=== PATIENT | male | born 1980 | race Caucasian/White ===

== ENCOUNTER 2018-01-09 08:19 | Emergency (ER) | payer OTHER ==
[2018-01-09] MEDS ORDERED: predniSONE 20 MG TAB PO ONE (08:45)
[2018-01-09] MEDS ORDERED: ONDANSETRON 4 MG/2 ML VIAL IVP ONE (08:45)
[2018-01-09] MEDS ORDERED: methylPREDNISolone SOD SUCC 125 MG/2 ML VIAL IVP ONE (08:45)
[2018-01-09] MEDS ORDERED: NS 1,000 ML IV ONE ×2 (08:45)
--- NOTE | 2018-01-09 08:48 | EDPHY ---
H & P Time Seen by Provider: 01/09/18 08:30 HPI/ROS: CHIEF COMPLAINT: Nausea vomiting diarrhea HISTORY OF PRESENT ILLNESS: 2 older children in his family are sick, and his 1- 1/2-year-old has had diarrhea for a week. He started having diarrhea yesterday and then around midnight multiple episodes of vomiting. Last 1 at 6:00 a.m.. Associated with some abdominal cramping, no melena or hematemesis. Symptoms severe. Feels dehydrated and thirsty. Worse with oral intake. REVIEW OF SYSTEMS: Eye: no change in vision ENT: no sore throat Cardiac: no chest pain or syncope Pulmonary: no cough or SOB Abdomen: HPI Musculoskeletal: no back pain Skin: Developed diffuse urticaria which is very itchy last night at some point. Neuro: no headache Constitutional: no fever : no urinary symptoms A comprehensive 10 point review of systems is otherwise negative aside from elements mentioned in the history of present illness. PAST MEDICAL HISTORY: Negative Social history: No recent out of the country travel, here with his family, all of whom have been sick at some point in the last week General Appearance: Alert and conversant, cooperative. Eyes: No scleral icterus. ENT, Mouth: Dry mucous membranes, uvula midline, no stridor or drooling. Respiratory: Normal respiratory effort, breath sounds equal, lungs are clear to auscultation. No wheezing. Cardiovascular: Regular rate and rhythm. Gastrointestinal: Abdomen is soft and non tender. Neurological: Alert, face symmetric, normal motor and sensory in extremities. Skin: Diffuse urticaria on extremities face and trunk. Musculoskeletal: No peripheral edema. Psychiatric: Not agitated. Emergency Department course/MDM: Zofran 4 mg IV and normal saline 2 L for vomiting and dehydration. 50 mg IV Benadryl and 60 mg IV Solu-Medrol for urticaria. Does not appear to have any airway symptoms. Isolated urticaria present but does not appear to have signs or symptoms of anaphylaxis. Gastrointestinal symptoms likely related to exposure from his family members. 930: Sleeping, not vomiting. 1023: Easily awakened, still has a rash but was able to sleep. Feels less nausea, stable for discharge if able to tolerate oral fluids. Smoking Status: Never smoked Constitutional: Initial Vital Signs Temperature (C) 36.3 C 01/09/18 08:21 Heart Rate 94 01/09/18 08:21 Respiratory Rate 20 01/09/18 08:21 Blood Pressure 138/103 H 01/09/18 08:21 O2 Sat (%) 100 01/09/18 08:21 O2 Delivery Mode Room Air Allergies/Adverse Reactions: azithromycin Allergy (Verified 01/09/18 08:20) Home Medications: Medication Instructions Recorded Famotidine [Pepcid] 20 mg PO BID #6 tab 01/09/18 Ondansetron Odt [Zofran Odt] 4 mg PO Q4PRN #6 tab 01/09/18 predniSONE [prednisone 20mg (RX)] 60 mg PO DAILY 3 Days tab 01/09/18 Medical Decision Making Differential Diagnosis: Differential considered including but not limited to gastroenteritis, food poisoning, allergic reaction, surgical abdominal process. - Data Points Medications Given: Discontinued Medications Diphenhydramine HCl (Benadryl Injection) 50 mg IVP EDNOW ONE Stop: 01/09/18 08:46 Last Admin: 01/09/18 09:03 Dose: 50 mg Sodium Chloride (Ns) 1,000 mls @ 0 mls/hr IV EDNOW ONE; Wide Open PRN Reason: Protocol Stop: 01/09/18 08:46 Last Admin: 01/09/18 08:50 Dose: 1,000 mls Sodium Chloride (Ns) 1,000 mls @ 0 mls/hr IV EDNOW ONE; Wide Open PRN Reason: Protocol Stop: 01/09/18 08:46 Last Admin: 01/09/18 08:58 Dose: 1,000 mls Methylprednisolone Sodium Succinate (Solu-Medrol) 60 mg IVP EDNOW ONE Stop: 01/09/18 08:46 Last Admin: 01/09/18 09:01 Dose: 60 mg Ondansetron HCl (Zofran) 4 mg IVP EDNOW ONE Stop: 01/09/18 08:46 Last Admin: 01/09/18 09:00 Dose: 4 mg Prednisone (Prednisone) 60 mg PO EDNOW ONE Stop: 01/09/18 08:46 Last Admin: 01/09/18 10:04 Dose: 60 mg Departure - Departure Disposition: Home, Routine, Self-Care Clinical Impression: Urticaria Nausea and vomiting Qualifiers: Vomiting type: unspecified Vomiting Intractability: non-intractable Qualified Code(s): R11.2 - Nausea with vomiting, unspecified Condition: Good Instructions: Urticaria (ED), Acute Nausea and Vomiting (ED) Additional Instructions: 3 days of antihistamine and oral steroids for the rash. Zofran tablets if needed for recurrent nausea. Referrals: Juanito Tolentino MD [Medical Doctor] - As per Instructions Prescriptions: Famotidine [Pepcid] 20 mg PO BID #6 tab Ondansetron Odt [Zofran Odt] 4 mg PO Q4PRN #6 tab predniSONE [prednisone 20mg (RX)] 60 mg PO DAILY 3 Days tab
[2018-01-09 10:08] VITALS: BP 120/85
== END 2018-01-09 10:41 | disposition home or self-care (01) ==
DX: R11.2 Nausea with vomiting, unspecified (principal); L50.9 Urticaria, unspecified; R19.7 Diarrhea, unspecified; E86.9 Volume depletion, unspecified
CPT/HCPCS: 96374; J1200; J2405; J2930